=== PATIENT | female | born 2000 | race Two or more races ===

== ENCOUNTER 2022-06-03 17:07 | Emergency (ER) | payer OTHER ==
[2022-06-03 17:20] VITALS: BP 117/79; PULSE 101; RESP 18; TEMP 97.4; BMI 27.8
[2022-06-03] MEDS ORDERED: SODIUM CHLORIDE 1,000 ML IV STA (17:35)
[2022-06-03] MEDS ORDERED: ACETAMINOPHEN 1000 MG/100 ML BAG IVPB ONE (18:25)
[2022-06-03] MEDS ORDERED: ACETAMINOPHEN INJECTION 100 ML IVPB ONE (18:28)
[2022-06-03 18:52] LABS: HCG,QUALITATIVE URINE Positive
[2022-06-03 19:01] LABS: EPI CELLS 8 /uL (0-25.1); HYALINE CASTS 2 /uL (0-3.1); PH,URINE 5.5 (5.0-8.0); URINE APPEARANCE CLOUDY; URINE BACTERIA 1009 /uL (0-1359); URINE BILIRUBIN NEGATIVE (NEGATIVE); URINE COLOR YELLOW; URINE GLUCOSE (UA) NEGATIVE (NEGATIVE); URINE KETONE TRACE (NEGATIVE); URINE LEUK ESTERASE NEGATIVE (NEGATIVE); URINE NITRITE NEGATIVE (NEGATIVE); URINE PROTEIN TRACE (NEGATIVE); URINE WBC 9 /uL (0-25.8)
[2022-06-03 20:23] LABS: URINE RBC 77.2 /uL (0-23.9)
[2022-06-03 20:41] LABS: BASO % 0.2 % (0-2.0); EOS % 0.5 % (0-4.5); HEMATOCRIT 38.9 % (32.4-45.2); HEMOGLOBIN 13.1 GM/dL (10.7-15.3); LYMPH % 18.6 % (8-40); MCH 28.1 pg (25.7-33.7); MCHC 33.6 g/dl (32.0-36.0); MEAN CELL VOLUME 83.7 fl (80-96); MEAN PLT VOLUME 8.7 fl (7.5-11.1); MONO % 5.9 % (3.8-10.2); NEUT % 74.8 % (42.8-82.8); PLATELET COUNT 239 10^3/uL (134-434); RBC 4.64 M/mm3 (3.60-5.2); RDW 14.4 % (11.6-15.6); WHITE BLOOD COUNT 9.3 K/mm3 (4.0-10.0)
[2022-06-03 20:49] LABS: INR 1.09 (0.83-1.09); PROTHROMBIN TIME (PATIENT) 12.6 SEC (9.7-13.0)
[2022-06-03 20:51] LABS: ACTIVATED PTT 34.4 SECONDS (25.2-36.5)
[2022-06-03 20:54] LABS: ALBUMIN 3.2 g/dl (3.4-5.0); BLOOD UREA NITROGEN 6.9 mg/dL (7-18); CALCIUM 9.3 mg/dL (8.5-10.1)
[2022-06-03 20:57] LABS: CREATININE 0.5 mg/dL (0.55-1.3)
[2022-06-03 20:59] LABS: BILIRUBIN,TOTAL 0.3 mg/dL (0.2-1); TOT PROT 7.2 g/dl (6.4-8.2)
[2022-06-03] MEDS ORDERED: CEPHALEXIN MONOHYDRATE 500 MG CAPSULE (UD) ONE (21:04)
[2022-06-03] MEDS ORDERED: CEPHALEXIN MONOHYDRATE 500 MG CAPSULE (UD) PO ONE (21:08)
== END 2022-06-03 22:21 | disposition home or self-care (01) ==
LOC: JER 17:07
PROC: 3E0337Z Introduction of Electrolytic and Water Balance Substance into Peripheral Vein, Percutaneous Approach (ICD-10-PCS; principal; 2022-06-03)
DX: O23.12 Infections of bladder in pregnancy, second trimester (principal); N30.90 Cystitis, unspecified without hematuria; Z3A.15 15 weeks gestation of pregnancy
CPT/HCPCS: 36415; 76815-TC; 80053; 81003; 84703; 85025; 85610; 85730; 86850; 86900; 86901; 99284-25

== ENCOUNTER 2022-11-17 08:05 | Inpatient (IN) | payer OTHER ==
[2022-11-17] MEDS ORDERED: OXYTOCIN 20 UNITS in 0.9% NS 20 UNIT/1,000 ML INFUS.BAG IV ONE ×2 (08:26→09:13)
[2022-11-17 08:39] VITALS: BMI 31.4
[2022-11-17] MEDS ORDERED: AMPICILLIN - 2 GM in SODIUM CHLORIDE 100 ML IVPB ONE (08:45)
[2022-11-17] MEDS ORDERED: AMPICILLIN SODIUM 2 GM VIAL ONE (08:50)
[2022-11-17] MEDS ORDERED: IBUPROFEN 600 MG TABLET (FP) PO ONE (09:35)
[2022-11-17] MEDS: IBUPROFEN 600 MG TABLET (FP) PO PRN ×3 (09:45→21:53)
[2022-11-17] MEDS ORDERED: WITCH HAZEL 50% (TUCKS) 40 PAD/JAR PAD TP PRN (09:53)
[2022-11-17] MEDS ORDERED: BISACODYL 10 MG SUPP.RECT RC PRN (09:53)
[2022-11-17] MEDS ORDERED: BENZOCAINE 28 GM HEMORRHOIDAL OINTMENT TP PRN (09:53)
[2022-11-17] MEDS ORDERED: oxyCODONE HCL 5 MG TABLET PO PRN (09:53)
[2022-11-17] MEDS ORDERED: METHYLERGONOVINE MALEATE 0.2 MG/1 ML AMP IM PRN (09:53)
[2022-11-17] MEDS ORDERED: BENZOCAINE 20% 57 GM BOTTLE TP PRN (09:53)
[2022-11-17] MEDS ORDERED: OXYTOCIN 20 UNITS in 0.9% NS 20 UNIT/1,000 ML INFUS.BAG IV SCH (10:00)
[2022-11-17] MEDS ORDERED: ELECTROLYTE-148 SOLN 1,000 ML IV SCH (10:00)
[2022-11-17 11:00] LABS: CORD BASE EXCESS -6.2 mmol/L (0-2); CORD HCO3 21.9 mmHg (20-29); CORD PCO2 53.3 mmHg (30-78); CORD pH 7.232 (7.14-7.44)
[2022-11-17 11:05] LABS: HEMATOCRIT 35.9 % (32.4-45.2); HEMOGLOBIN 11.6 GM/dL (10.7-15.3); MCH 26.8 pg (25.7-33.7); MCHC 32.3 g/dl (32.0-36.0); MEAN CELL VOLUME 83.1 fl (80-96); MEAN PLT VOLUME 9.1 fl (7.5-11.1); PLATELET COUNT 231 10^3/uL (134-434); RBC 4.32 M/mm3 (3.60-5.2); RDW 16.5 % (11.6-15.6); WHITE BLOOD COUNT 12.1 K/mm3 (4.0-10.0)
[2022-11-17 11:08] LABS: INR 0.97 (0.83-1.09); PROTHROMBIN TIME (PATIENT) 11.2 SEC (9.7-13.0)
[2022-11-17 11:11] LABS: CORD BASE EXCESS -5.2 mmol/L (0-2); CORD HCO3 20.2 mmHg (20-29); CORD pH 7.332 (7.14-7.44)
[2022-11-17 11:11] LABS: ACTIVATED PTT 26.9 SECONDS (25.2-36.5)
[2022-11-17 11:17] LABS: POTASSIUM 4.4 mmol/L (3.5-5.1)
[2022-11-17 11:19] LABS: CALCIUM 8.6 mg/dL (8.5-10.1)
[2022-11-17 11:20] LABS: BLOOD UREA NITROGEN 8.7 mg/dL (7-18)
[2022-11-17 11:23] LABS: CREATININE 0.6 mg/dL (0.55-1.3)
[2022-11-17 11:37] LABS: ANISOCYTOSIS 0; HELMET CELLS 0; HOWELL-JOLLY BODIES 0; MACROCYTOSIS 0; OVALOCYTE 0; ROULEAU 0; SICKELED CELLS 0; TARGET CELLS 0; TEAR DROP CELLS 0; TOXIC GRANULATION 0
[2022-11-17] MEDS ORDERED: AMPICILLIN - 1 GM in SODIUM CHLORIDE 100 ML IVPB SCH (12:45)
[2022-11-18 07:21] LABS: HEMATOCRIT 30.8 % (32.4-45.2); MCH 26.9 pg (25.7-33.7); MCHC 32.6 g/dl (32.0-36.0); MEAN CELL VOLUME 82.4 fl (80-96); MEAN PLT VOLUME 8.6 fl (7.5-11.1); PLATELET COUNT 189 10^3/uL (134-434); RBC 3.73 M/mm3 (3.60-5.2); RDW 16.4 % (11.6-15.6); WHITE BLOOD COUNT 12.4 K/mm3 (4.0-10.0)
[2022-11-18 08:51] LABS: ANISOCYTOSIS 0; HELMET CELLS 0; HOWELL-JOLLY BODIES 0; MACROCYTOSIS 0; OVALOCYTE 0; ROULEAU 0; SICKELED CELLS 0; TARGET CELLS 0; TEAR DROP CELLS 0; TOXIC GRANULATION 0
[2022-11-18] MEDS: ACETAMINOPHEN 325 MG TABLET (FP) PO PRN ×2 (09:40→21:54)
[2022-11-18] MEDS ORDERED: SENNOSIDES/DOCUSATE COMBO (SENNA PLUS) TABLET (UD) PO PRN (22:00)
[2022-11-19 07:52] VITALS: BP 129/79; PULSE 86; RESP 18; TEMP 98.6
== END 2022-11-19 12:15 | disposition home or self-care (01) | DRG 560 ==
LOC: JLDR 08:05 → J3W 12:36
PROVIDERS: ADMIT Obstetrics & Gynecology; ATTEND Obstetrics & Gynecology
PROC: 0W8NXZZ Division of Female Perineum, External Approach (ICD-10-PCS; principal; 2022-11-17)
PROC: 10E0XZZ Delivery of Products of Conception, External Approach (ICD-10-PCS; 2022-11-17)
DX: O69.81X0 Labor and delivery complicated by cord around neck, without compression, not applicable or unspecified (principal); Z3A.39 39 weeks gestation of pregnancy; Z37.0 Single live birth
CPT/HCPCS: 36415; 36600; 80048; 82803; 85025; 85610; 85730; 86780; 86803; 86850; 86900; 86901; 87635